=== PATIENT | male | born 1960 | race Caucasian/White ===

== ENCOUNTER 2016-07-10 16:05 | Emergency (ER) | payer OTHER ==
[2016-07-10 16:22] VITALS: BP 120/62; PULSE 81; TEMP 98.1; BMI 20.3
--- NOTE | 2016-07-10 17:01 | PDOC ---
History of Present Illness - General History Source: Patient Exam Limitations: No Limitations - History of Present Illness Initial Comments: 07/10/16 17:58 Chief complaint: Splinter in right thumb History of present illness: Patient is a 55 year old, who presents to the ED with a wooden splinter on his right thumb. He states that he was scrubbing his floor when the incident occurred last night. He reports pain and swelling from the area, which is exacerbated when the area is touched. He notes that he tried to pull it out himself but was unsuccessful. Allergies: None Past medical history: None reported Social history: No alcohol, tobacco or drug use reported Family history: Father (diabetes) <Lawrence Thrasher - Last Filed: 07/10/16 17:54> <Mehran Patton - Last Filed: 07/10/16 18:30> - General Chief Complaint: Foreign Body (FB) Stated Complaint: SPLINTER RT THUMB Time Seen by Provider: 07/10/16 16:54 Past History <Lawrence Thrasher - Last Filed: 07/10/16 17:54> - Past Medical History Other medical history: DENIES - Immunization History Immunization Up to Date: Yes - Psycho/Social/Smoking Cessation Hx Anxiety: No Suicidal Ideation: No Smoking Status: No Smoking History: Never smoked Have you smoked in the past 12 months: No Number of Cigarettes Smoked Daily: 0 Information on smoking cessation initiated: No Hx Alcohol Use: No Drug/Substance Use Hx: No Substance Use Type: None <Mehran Patton - Last Filed: 07/10/16 18:30> - Past Medical History Allergies/Adverse Reactions: Allergies Allergy/AdvReac Type Severity Reaction Status Date / Time No Known Allergies Allergy Verified 07/10/16 16:06 Home Medications: Ambulatory Orders Cephalexin Monohydrate [Keflex] 500 mg PO Q6H #30 capsule 07/10/16 Ibuprofen 800 mg PO TID PRN #20 tablet 07/10/16 Review of Systems - Review of Systems Able to Perform ROS?: Yes Comments:: 07/10/16 17:58 GENERAL/CONSTITUTIONAL: No fever or chills. No weakness. HEAD, EYES, EARS, NOSE AND THROAT: No change in vision. No ear pain or discharge. No sore throat. CARDIOVASCULAR: No chest pain or shortness of breath RESPIRATORY: No cough, wheezing, or hemoptysis. MUSCULOSKELETAL: No joint or muscle swelling or pain. No neck or back pain. EXTREMITIES: +Right thumb pain and swelling with foreign body SKIN: No rash NEUROLOGIC: No headache, vertigo, loss of consciousness, or change in strength/ sensation. <Lawrence Thrasher - Last Filed: 07/10/16 17:54> *Physical Exam - Vital Signs Last Vital Signs Temp Pulse Resp BP Pulse Ox 98.1 F 81 20 120/62 99 07/10/16 16:06 07/10/16 16:06 07/10/16 16:06 07/10/16 16:06 07/10/16 16:06 - Physical Exam Comments: 07/10/16 17:59 GENERAL: Awake, alert, and fully oriented, in no acute distress HEAD: No signs of trauma, normocephalic, atraumatic EXTREMITIES: Normal range of motion. No clubbing or cyanosis. Examination Confined to the right thumb, swelling and erythema and point tenderness over the distal pulp of the thumb, just lower to the edge of the thumb nail, small piece of splinter protruding from the skin, along the lateral surface no involvement of the IP joint or the nail itself. Full Range of motion and good capillary refill. NEUROLOGICAL: Cranial nerves II through XII grossly intact. Normal speech, normal gait, no focal sensorimotor deficits SKIN: Warm, Dry, normal turgor, no rashes or lesions noted. 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 He pulled part of it out, but some remained. This morning his fingertip is swollen erythematous and painful. The injury is confined to the distal pulp, well away from the IP joint. There is the tip of a small splinter still protruding through the skin surface. 07/10/16 18:24 X-ray is negative for foreign body. The finger was soaked in Betadine solution, bacitracin was applied, and the thumb was immobilized in a spica splint to minimize the risk of worsening infection. The patient was instructed to rest and elevate the hand and to follow -up with the hand specialist as directed. After splinting, the patient was more comfortable, there was no distal numbness tingling or increased pain, capillary refill intact, and there was good fingertip motion Patient states that he had tetanus booster 3 years ago. <Mehran Patton - Last Filed: 07/10/16 18:30> *DC/Admit/Observation/Transfer - Attestations Scribe Attestion: 07/10/16 17:58 Documentation prepared by Lawrence Thrasher, acting as medical record transcriber for Mehran Tomlinson MD <Lawrence Thrasher - Last Filed: 07/10/16 17:54> - Discharge Dispostion Admit: No <Mehran Patton - Last Filed: 07/10/16 18:30> Diagnosis at time of Disposition: Finger infection - Discharge Dispostion Disposition: HOME Condition at time of disposition: Improved - Prescriptions Prescriptions: Ibuprofen 800 mg PO TID PRN #20 tablet PRN Reason: Pain Cephalexin Monohydrate [Keflex] 500 mg PO Q6H #30 capsule - Referrals Referrals: Tristen Huynh MD [Staff Physician] - 2 Days - Patient Instructions Additional Instructions: Rest and elevate. Warm soaks. Maintained immobilization with the splint as directed. Antibiotics 4 times daily. Recheck hand specialist in 2 days for further evaluation. Return to the emergency room for recheck sooner if infection seems like it is spreading, in other words, if there is increased redness swelling pain or spread of the symptoms up the hand or forearm. - Post Discharge Activity Work/School Note: Back to Work
[2016-07-10] MEDS ORDERED: CEPHALEXIN MONOHYDRATE 500 MG CAPSULE (UD) PO ONE (18:20)
[2016-07-10] MEDS ORDERED: CEPHALEXIN MONOHYDRATE 500 MG CAPSULE (UD) ONE (18:29)
== END 2016-07-10 18:34 | disposition home or self-care (01) ==
LOC: FER 16:05
PROC: 2W3GX1Z Immobilization of Right Thumb using Splint (ICD-10-PCS; principal; 2016-07-10)
DX: W22.8XXA Striking against or struck by other objects, initial encounter (principal); Y93.89 Activity, other specified; Y92.9 Unspecified place or not applicable; Y99.0 Civilian activity done for income or pay; L08.9 Local infection of the skin and subcutaneous tissue, unspecified
CPT/HCPCS: 29130; 73140-TC-RT; 99283-25

== ENCOUNTER 2018-05-17 12:41 | Emergency (ER) | payer SELFPAY ==
[2018-05-17 13:05] VITALS: BP 115/80; PULSE 84; TEMP 98; BMI 20.3
[2018-05-17] MEDS ORDERED: methylPREDNISolone NA SUCC 125 MG/2 ML VIAL IVPUSH ONE (13:16)
[2018-05-17] MEDS ORDERED: FAMOTIDINE 20 MG/50 ML IVPB 20 MG/50 ML MG IVPB ONE ×2 (13:16→13:18)
[2018-05-17] MEDS ORDERED: methylPREDNISolone NA SUCC 125 MG/2 ML VIAL ONE (13:17)
--- NOTE | 2018-05-17 13:19 | PDOC ---
History of Present Illness - General Chief Complaint: Redness To Affected Area Stated Complaint: SWELLING L SIDE EYE Time Seen by Provider: 05/17/18 13:01 History Source: Patient, Unavil. due to pt. cond. - History of Present Illness Initial Comments: 05/17/18 13:17 57-year-old male history of recent ALLERGIC reaction here today complaining of sudden onset facial and left eye swelling. Patient denies any new meds lotions detergents or softeners. He was not doing any work this morning. He said he was driving on his way to see his son and suddenly he noticed left forehead and periorbital swelling. He does feel itchy sensation he states that he had a similar reaction 2 weeks ago and thought that it may be due to drinking from a plastic cup. Denies any known food ALLERGIES no shortness of breath no tongue or lip swelling today Past History - Past Medical History Allergies/Adverse Reactions: Allergies Allergy/AdvReac Type Severity Reaction Status Date / Time No Known Allergies Allergy Verified 05/17/18 12:56 Home Medications: Ambulatory Orders Diphenhydramine HCl [Benadryl -] 25 mg PO ONCE 05/17/18 EPINEPHrine (EPI-PEN 0.3MG) [Epipen 0.3MG -] 0.3 mg IM ASDIR #2 pens 05/17/18 Prednisone [Deltasone] 20 mg PO BID 3 Days #6 tablet 05/17/18 COPD: No - Immunization History TDAP Vaccination: Yes (03/10/2015) Immunization Up to Date: Yes - Suicide/Smoking/Psychosocial Hx Smoking Status: No Smoking History: Never smoked Have you smoked in the past 12 months: No Number of Cigarettes Smoked Daily: 0 Hx Alcohol Use: No Drug/Substance Use Hx: No Substance Use Type: None Review of Systems - Review of Systems Constitutional: No: Diaphoresis, Fever HEENTM: No: Blurred Vision Respiratory: No: Cough, Orthopnea Cardiac (ROS): No: Chest Pain, Edema ABD/GI: No: Abdominal Distended, Vomiting, Indigestion : No: Dysuria, Discharge Integumentary: Yes: Rash All Other Systems: Reviewed and Negative *Physical Exam - Vital Signs Last Vital Signs Temp Pulse Resp BP Pulse Ox 98.0 F 84 16 115/80 98 05/17/18 12:43 05/17/18 12:43 05/17/18 12:43 05/17/18 12:43 05/17/18 12:43 - Physical Exam Comments: 05/17/18 13:18 Awake alert notes distress the face is noted for for head and left periorbital swelling and edema. There is no urinary erythema extraocular motions are intact. There is no tongue or lip swelling no uvular edema mouth is with dry mucous membranes heart is regular with any murmurs rubs or gallops lungs are clear bilaterally abdomen is soft and nontender skin is otherwise warm and dry except for the described ED and swelling noted over the left facial region Moderate Sedation - Procedure Monitoring Vital Signs: Procedure Monitoring Vital Signs Temperature 98.0 F 05/17/18 12:43 Pulse Rate 84 05/17/18 12:43 Respiratory Rate 16 05/17/18 12:43 Blood Pressure 115/80 05/17/18 12:43 O2 Sat by Pulse Oximetry (%) 98 05/17/18 12:43 Medical Decision Making - Medical Decision Making 05/17/18 13:19 87-year-old with severe ALLERGIC reaction involving the face. Plan IV Benadryl Pepcid and Solu-Medrol. We'll observe the patient for worsening symptoms. Should symptoms worsen we'll treat him with epinephrine patient will be discharged after observation with an epinephrine pen and referral for ALLERGY immunology and/or a new PCP *DC/Admit/Observation/Transfer Diagnosis at time of Disposition: Allergic reaction - Discharge Dispostion Condition at time of disposition: Improved - Prescriptions Prescriptions: EPINEPHrine (EPI-PEN 0.3MG) [Epipen 0.3MG -] 0.3 mg IM ASDIR #2 pens Prednisone [Deltasone] 20 mg PO BID 3 Days #6 tablet - Referrals Referrals: Omar Flores MD [Staff Physician] - Renetta Rogers [Non Staff, Medical] - - Patient Instructions Printed Discharge Instructions: DI for General Allergic Reactions Additional Instructions: you should take prednisone 20 mg twice daily x 3 days starting tomorrow. you should also take benadryl 50mg every 6 hrs for one day and then only every 6 hrs as needed for itching or swelling. for severe swelling in mouth or tongue, difficulty breathing you should use the epe pen injected into thigh muscle as directed. then go immediately to the emergency room. return for worsenig symptoms shortness of breath or any concerns. you should follow up with an client development manager. you should also see your primary doctor. if you do not have one you can follow up wtih dr. flores see referal information. - Post Discharge Activity
== END 2018-05-17 16:24 | disposition home or self-care (01) ==
LOC: FER 12:41
PROC: 3E033GC Introduction of Other Therapeutic Substance into Peripheral Vein, Percutaneous Approach (ICD-10-PCS; principal; 2018-05-17)
DX: T78.40XA Allergy, unspecified, initial encounter (principal)
CPT/HCPCS: 99282-25

== ENCOUNTER 2019-06-15 00:02 | Emergency (ER) | payer OTHER ==
[2019-06-15 00:10] VITALS: TEMP 98.3; BMI 19.8
[2019-06-15] MEDS ORDERED: methylPREDNISolone NA SUCC 125 MG/2 ML VIAL IVPB ONE (00:15)
[2019-06-15] MEDS ORDERED: methylPREDNISolone NA SUCC 125 MG/2 ML VIAL ONE (00:17)
[2019-06-15] MEDS ORDERED: SODIUM CHLORIDE 1,000 ML IV ONE ×2 (00:18→02:35)
--- NOTE | 2019-06-15 00:20 | PDOC ---
History of Present Illness - General Chief Complaint: Allergic Reaction Stated Complaint: SWELLING AND PAIN TO THROAT Time Seen by Provider: 06/15/19 00:09 History Source: Patient Exam Limitations: No Limitations - History of Present Illness Initial Comments: 06/15/19 00:20 This is a 58-year-old male who comes in complaining of an allergic reaction. Patient has history of intermittent related reactions that are moderately severe where all of a sudden his throat will start closing up. Patient took 100 mg of Benadryl and came into the ED. Patient said symptoms are much better by the time he got here however he still does have a small alteration in his voice. Patient is able to swallow his secretions. Patient denies any rash or itching patient denies any shortness of breath, nausea, abdominal pain or any other complaints. 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 allergies: as per nursing notes Past Medical History: none Social history: Lives with family. No smoking. No alcohol. No illicit drugs. Surgical history: None General: No fevers or chills, no weakness, no weight loss HEENT: No change in vision. No sore throat,. No ear pain, allergic reaction sensation throat is closing CardioVascular: no chest discomfort. No shortness of breath Respiratory:No cough, or wheezing. Gastrointestinal: no nausea, vomiting, diarrhea or constipation, No rectal bleeding Genitourinary: No dysuria, hematuria, or frequency Musculoskeletal: No joint or muscle pain or swelling Neurologic: No headache, vertigo, dizziness or loss of consciousness Psychiatric: nor depression Skin: No rashes or easy bruising Endocrine: no increased thirst or abnormal weight change Allergic: no skin or latex allergy All other systems reviewed and normal Exam: General: Well-nourished well-developed individual, no acute distress HEENT: Throat: There is a moderate amount of angioedema of the posterior oropharynx Neck: Supple, no meningeal signs, no lymphadenopathy Eyes::Pupils equal reactive and round, extraocular motion intact Chest: Nontender to palpation Cardiac: S1-S2 normal, regular rate and rhythm, no murmurs rubs or gallops Respiratory: Lungs clear to auscultation bilateral Abdomen: Soft, nondistended, normal bowel sounds, there is no tenderness on palpation diffusely Extremities: Warm, dry, no cyanosis, clubbing, or edema Skin: No rashes Neuro: Alert and oriented x3, CN II - XII intact, nonfocal exam with normal strength, normal sensation, normal reflexes, normal gait, Psych: Normal mood and affect Assessment and plan: This is a 58-year-old male with unknown etiology for acute allergic reaction who comes in with angioedema of his posterior oropharynx. Patient given Solu-Medrol and another 50 of Benadryl here in the ED. Will observe for minimum of 4 hours 06/15/19 00:30 Patient stated feels like he is getting worse. Patient given epi with improvement of his symptoms. We will continue to observe patient for at least another 6 hours. 06/15/19 06:38 Patient improved feels much better will discharge home Past History - Past Medical History Allergies/Adverse Reactions: Allergies Allergy/AdvReac Type Severity Reaction Status Date / Time No Known Allergies Allergy Verified 06/15/19 00:04 Home Medications: Ambulatory Orders Diphenhydramine [Benadryl -] 100 mg PO ONCE 06/15/19 Methylprednisolone [Medrol Dose Felipe] 4 mg PO ASDIR #21 tablet 06/15/19 COPD: No - Immunization History TDAP Vaccination: Yes (03/10/2015) Immunization Up to Date: Yes - Psycho Social/Smoking Cessation Hx Smoking Status: No Smoking History: Never smoked Have you smoked in the past 12 months: No Number of Cigarettes Smoked Daily: 0 Information on smoking cessation initiated: No Hx Alcohol Use: No Drug/Substance Use Hx: No Substance Use Type: None *Physical Exam - Vital Signs Last Vital Signs Temp Pulse Resp BP Pulse Ox 98.3 F 76 16 116/68 100 06/15/19 00:07 06/15/19 00:07 06/15/19 00:07 06/15/19 00:07 06/15/19 00:07 Discharge - Discharge Information Problems reviewed: Yes Clinical Impression/Diagnosis: Angio-edema Condition: Stable Disposition: HOME - Admission No - Additional Discharge Information Prescriptions: Methylprednisolone [Medrol Dose Felipe] 4 mg PO ASDIR #21 tablet - Follow up/Referral Referrals: Yenny Young MD [Primary Care Provider] - - Patient Discharge Instructions Additional Instructions: Take the Medrol Dosepak and taper as per the pack. Return to the emergency department immediately with ANY new, persistent or worsening symptoms. Continue any medications as previously prescribed by your physician. You should follow up with your primary doctor as soon as possible regarding today's emergency department visit. . Please make sure your doctor reviews the results of your emergency evaluation. Thank you for coming to the Emergency Department today for your care. It was a pleasure to see you today. Please note that your evaluation is INCOMPLETE until you follow-up with your doctor. - Post Discharge Activity
[2019-06-15] MEDS ORDERED: EPINEPHrine 1:1,000 0.3 MG/0.3 ML SYR IM ONE (00:49)
[2019-06-15 06:00] VITALS: BP 116/87; PULSE 60
== END 2019-06-15 06:53 | disposition home or self-care (01) ==
LOC: FER 00:02
PROC: 3E033GC Introduction of Other Therapeutic Substance into Peripheral Vein, Percutaneous Approach (ICD-10-PCS; principal; 2019-06-15)
PROC: 3E0337Z Introduction of Electrolytic and Water Balance Substance into Peripheral Vein, Percutaneous Approach (ICD-10-PCS; 2019-06-15)
DX: T78.3XXA Angioneurotic edema, initial encounter (principal)
CPT/HCPCS: 99284-25; J7030

== ENCOUNTER 2020-04-07 20:45 | Emergency (ER) | payer OTHER ==
[2020-04-07] MEDS ORDERED: methylPREDNISolone NA SUCC 125 MG/2 ML VIAL IVPUSH ONE (20:51)
[2020-04-07] MEDS ORDERED: EPINEPHrine 1:1,000 0.3 MG/0.3 ML SYR IM ONE (20:51)
[2020-04-07 20:53] VITALS: TEMP 98.1; BMI 19.7
[2020-04-07] MEDS ORDERED: EPINEPHrine/PF 1 MG/1 ML (1:1,000) AMPULE ONE (20:55)
[2020-04-07] MEDS ORDERED: methylPREDNISolone NA SUCC 125 MG/2 ML VIAL ONE (20:55)
[2020-04-08 01:01] VITALS: BP 136/90; PULSE 70
== END 2020-04-08 01:01 | disposition home or self-care (01) ==
LOC: FER 20:45
PROC: 3E033GC Introduction of Other Therapeutic Substance into Peripheral Vein, Percutaneous Approach (ICD-10-PCS; principal; 2020-04-07)
PROC: 3E033GC Introduction of Other Therapeutic Substance into Peripheral Vein, Percutaneous Approach (ICD-10-PCS; 2020-04-07)
DX: T78.40XA Allergy, unspecified, initial encounter (principal); T78.3XXA Angioneurotic edema, initial encounter
CPT/HCPCS: 99284-25

== ENCOUNTER 2020-12-24 15:46 | Emergency (ER) | payer OTHER ==
[2020-12-24] MEDS ORDERED: AMOX TR/POT CLAV 875MG/125MG TABLETS (FP) PO ONE (15:51)
[2020-12-24 15:55] VITALS: BP 113/82; PULSE 85; TEMP 98.5; BMI 20.3
[2020-12-24] MEDS ORDERED: AMOX TR/POT CLAV 875MG/125MG TABLETS (FP) ONE (16:24)
[2020-12-26 14:08] LABS: SARS-CoV-2 NAA Not Detected (Not Detected)
== END 2020-12-24 16:36 | disposition home or self-care (01) ==
LOC: FER 15:46
DX: J02.9 Acute pharyngitis, unspecified (principal); L08.89 Other specified local infections of the skin and subcutaneous tissue
CPT/HCPCS: 73140-TC-RT-FY; 99284-25; C9803; U0003; U0005

== ENCOUNTER 2021-02-03 10:24 | Emergency (ER) | payer OTHER ==
[2021-02-03 10:29] VITALS: BP 140/112; PULSE 107; TEMP 98.2; BMI 20.9
[2021-02-03] MEDS ORDERED: methylPREDNISolone NA SUCC 125 MG/2 ML VIAL IVPUSH ONE (10:41)
[2021-02-03] MEDS ORDERED: FAMOTIDINE 20 MG/50 ML IVPB 20 MG/50 ML MG IVPB ONE ×2 (10:41→10:43)
[2021-02-03] MEDS ORDERED: LACTATED RINGERS SOLUTION 1000 ML INFUS.BAG IV ONE (10:41)
[2021-02-03] MEDS ORDERED: methylPREDNISolone NA SUCC 125 MG/2 ML VIAL ONE (10:43)
== END 2021-02-03 14:18 | disposition home or self-care (01) ==
LOC: FER 10:24
PROC: 3E033NZ Introduction of Analgesics, Hypnotics, Sedatives into Peripheral Vein, Percutaneous Approach (ICD-10-PCS; principal; 2021-02-03)
PROC: 3E033GC Introduction of Other Therapeutic Substance into Peripheral Vein, Percutaneous Approach (ICD-10-PCS; 2021-02-03)
DX: T78.40XA Allergy, unspecified, initial encounter (principal)
CPT/HCPCS: 99283-25

== ENCOUNTER 2021-09-28 02:50 | Emergency (ER) | payer OTHER ==
[2021-09-28 03:07] VITALS: BP 139/89; PULSE 77; TEMP 97.8; BMI 20.1
== END 2021-09-28 03:39 | disposition home or self-care (01) ==
LOC: FER 02:50
DX: T60.4X1A Toxic effect of rodenticides, accidental (unintentional), initial encounter (principal)
CPT/HCPCS: 99281-25

== ENCOUNTER 2022-03-17 15:39 | Emergency (ER) | payer OTHER ==
[2022-03-17 15:50] VITALS: BP 130/90; PULSE 96; RESP 20; TEMP 98.2; BMI 20.1
[2022-03-17] MEDS ORDERED: LIDOCAINE 5% TOPICAL PATCH TP ONE (16:08)
[2022-03-17] MEDS ORDERED: ACETAMINOPHEN 500 MG TABLET (FP) PO ONE (16:08)
[2022-03-17] MEDS ORDERED: KETOROLAC TROMETHAMINE 30 MG/1 ML VIAL IM ONE (16:08)
[2022-03-17] MEDS ORDERED: KETOROLAC TROMETHAMINE 30 MG/1 ML VIAL ONE (16:11)
[2022-03-17] MEDS ORDERED: ACETAMINOPHEN 500 MG TABLET (FP) ONE (16:11)
[2022-03-17] MEDS ORDERED: LIDOCAINE 5% TOPICAL PATCH ONE (16:11)
[2022-03-17] MEDS ORDERED: LIDOCAINE PATCH REMOVAL MC SCH (22:00)
== END 2022-03-17 16:37 | disposition home or self-care (01) ==
LOC: FER 15:39
PROC: 3E0233Z Introduction of Anti-inflammatory into Muscle, Percutaneous Approach (ICD-10-PCS; principal; 2022-03-17)
DX: M43.6 Torticollis (principal)
CPT/HCPCS: 99284-25